=== PATIENT | female | born 1980 | race Caucasian/White ===

== ENCOUNTER → 2018-10-02 | Outpatient (CLI) | payer SELFPAY ==
--- NOTE | 2018-10-02 14:47 | MM ---
Reason for exam: clinical finding. Baseline mammogram. History: Patient is nulliparous. Family history of breast cancer in mother at age 53 and breast cancer in paternal aunt at age 62. Took hormonal contraceptives beginning at age 16. Physical Findings: Nurse Summary: 0.5-1cm nodule in the left breast at 1 o'clock (nurse kp). MG 3D Diag Mammo W/Cad WARNER Bilateral CC and MLO view(s) were taken. The breast tissue is extremely dense which could obscure a lesion on mammography. Finding #1: There is a 20 mm obscured round mass in the axilla position of the left breast at palpable. Finding #2: There are typically benign round calcifications in both breasts. These results were verbally communicated with the patient and result sheet given to the patient on 10/02/18. ASSESSMENT: Incomplete: need additional imaging evaluation, BI-RAD 0 RECOMMENDATION: Ultrasound of the left breast.
--- NOTE | 2018-10-02 14:49 | USB ---
Reason for exam: clinical finding. History: Patient is nulliparous. Family history of breast cancer in mother at age 53 and breast cancer in paternal aunt at age 62. Took hormonal contraceptives beginning at age 16. US Breast Limited LT Left limited breast ultrasound including focal area of concern, retroareolar and axilla demonstrates a 0.9 x 0.5 x 0.8cm oval, mixed, hypoechoic lesion at 1 o'clock. These results were verbally communicated with the patient and result sheet given to the patient on 10/02/18. ASSESSMENT: Suspicious, BI-RAD 4 RECOMMENDATION: Ultrasound core biopsy of the left breast. Called Dr. León with mammographic findings and has scheduled an appointment for the patient for 10/13/18 at 2:[address] Thorpe. Biopsy scheduled for 10/08/18 at 2:00. PRELIMINARY REPORT CALLED AND FAXED TO DR. THORPE ON 10/02/18.
== END | disposition home or self-care (01) ==
LOC: RADMAMWWP 12:44
PROVIDERS: ATTEND Emergency Medicine
DX: N63.20 Unspecified lump in the left breast, unspecified quadrant (principal); N63.10 Unspecified lump in the right breast, unspecified quadrant; R92.8 Other abnormal and inconclusive findings on diagnostic imaging of breast
CPT/HCPCS: 77062; 77066

== ENCOUNTER → 2018-10-08 | Day surgery (SDC) | payer SELFPAY ==
[2018-10-08 13:20] VITALS: RESP 16; BMI 18.9
[2018-10-08 14:55] VITALS: BP 99/57; PULSE 68; TEMP 98.2
--- NOTE | 2018-10-08 15:01 | USB ---
EXAMINATION TYPE: US biopsy breast VAD LT, MG diagnostic mammo LT wo CAD DATE OF EXAM: 10/08/2018 CLINICAL HISTORY: R92.8 ABNORMAL MAMMOGRAM. TECHNIQUE: Ultrasound guided core biopsy of left breast. COMPARISON: 10/02/2018 FINDINGS: The procedure of ultrasound guided core biopsy was explained to the patient. Benefits, alternatives, and risks were discussed. An informed consent was then obtained. Preprocedural timeout was performed The patient was placed in supine positioning for imaging and for the procedure. The overlying skin was prepped and draped in usual sterile fashion. 10 cc of 1% lidocaine without epinephrine was used as anesthetic into the skin and subcutaneous tissue up to the 0.9 x 0.5 x 0.8 cm mass in the upper outer quadrant of the left breast near the axillary tail. Under ultrasound guidance, a 12-gauge vacuum assisted biopsy gun device was used to obtain 4 core samples. Following this, a coil-shaped biopsy marker was left in mass. Postprocedure mammogram demonstrates appropriate biopsy marker placement. This appears to correspond to the initial palpable abnormality. The patient tolerated the procedure well without any immediate complication. The patient was kept in the radiology department for short stay after the procedure and then discharged home in stable condition. IMPRESSION: Successful, uncomplicated ultrasound guided core biopsy of a 0.9 x 0.5 x 0.8 cm mass in the upper outer quadrant of the left breast, questionable lymph node, full pathology results to follow. Pathology Results: Benign LEFT BREAST LESION, NEEDLE CORE BIOPSY: Breast stroma with focal fibrosis and minimal duct cystic changes consistent with fibrocystic spectrum disorder. Fragments of unremarkable lobulated fat suggestive of intra mammary lipoma. Recommendation Follow up mammogram of the left breast in 6 months. BETTY
== END ==
LOC: RADUSWWP 12:55
PROVIDERS: ATTEND Surgery
DX: N60.32 Fibrosclerosis of left breast (principal); N64.89 Other specified disorders of breast
CPT/HCPCS: 19083; 88305; 77065; A4648; J2001

== ENCOUNTER → 2024-09-15 | Outpatient (CLI) | payer BC ==
--- NOTE | 2024-09-15 15:15 | MM ---
Reason for Exam: Screening (asymptomatic). Last mammogram was performed 6 year(s) and 0 month(s) ago. Patient History: Menarche at age 12. First Full-Term at age 41. Late child-bearing (after 30). Patient tested for BRCA2 outcome was negative. Hormonal Contraceptives, from age 16 until age 27. 10/08/2018, Benign Core Biopsy on the left side. Paternal aunt had breast cancer, age 62. Paternal cousin had breast cancer, age 45. Mother had breast cancer, age 48. Risk Values: Yumiko 5 year model risk: 2.4%. NCI Lifetime model risk: 22.2%. Prior Study Comparison: 10/02/2018 Bilateral Diagnostic Mammogram, [facility]. 10/08/2018 Left Diagnostic Mammogram, [facility]. Tissue Density: The breasts are extremely dense, which lowers the sensitivity of mammography. Findings: Analyzed By CAD. Mammotome biopsy clip posteriorly in the left breast is now present. There is no suspicious group of microcalcifications or new suspicious mass in either breast. Overall Assessment: Benign, BI-RAD 2 Management: Screening Mammogram of both breasts in 1 year. Some Advise annual bilateral breast ultrasound surveillance in patients with background dense tissue. Patient should continue monthly self-breast exams. A clinical breast exam by your physician is recommended on an annual basis. This exam should not preclude additional follow-up of suspicious palpable abnormalities. Note on Yumiko scores and lifetime risk: 1. A Yumiko score greater than 3% is considered moderate risk. If this is the case, consider specialist referral to assess eligibility for a risk reducing agent. 2. If overall lifetime risk for the development of breast cancer is 20% or higher, the patient may qualify for future screening with alternating mammogram and breast MRI. [facility], , 09/15/2024 3:04 PM. Electronically signed and approved by: Sea Galvez M.D.
== END | disposition home or self-care (01) ==
LOC: RADMAMWWP 14:23
PROVIDERS: ATTEND Obstetrics & Gynecology
DX: Z12.31 Encounter for screening mammogram for malignant neoplasm of breast (principal); R92.343 Mammographic extreme density, bilateral breasts; Z92.0 Personal history of contraception; Z80.3 Family history of malignant neoplasm of breast
CPT/HCPCS: 77063; 77067